=== PATIENT | female | born 1955 | race African-American/Black ===

== ENCOUNTER 2017-01-11 20:12 | Emergency (ER) | payer OTHER ==
[~2017-01-11] VITALS: Ht 160 cm; Wt 64.0 kg
[~2017-01-11 20:12] MED LIST: ASPI81EC97 PO; ASPI81EC98 PO; LORA10TA19 PO; ORE25 PO; PANT40EC PO; RANI75TA PO; SIMV20TA1 PO; SYN.075 PO
[2017-01-11 20:15] VITALS: BP 143/77
--- NOTE | 2017-01-11 20:37 | NUR ---
PT KRIST[facility]. TAKEN TO BED 7
--- NOTE | 2017-01-11 20:38 | NUR ---
61Y F BIBA FOR ANXIETY WHILE AT HOME S/P ARGUEMENT WITH DAUGHTER AND . PT STATES THIS HAS HAPPENED BEFORE . PT DENIES N/V/D; SKIN IS PINK/WARM/DRY; AAOX4 WITH EVEN AND STEADY GAIT; LUNGS CLEAR BL; HR EVEN AND REGULAR; PT DENIES ANY FEVER, CP, SOB, OR COUGH AT THIS TIME; PATIENT STATES PAIN OF 0/10 AT THIS TIME; VSS; PATIENT POSITIONED FOR COMFORT; HOB ELEVATED; BEDRAILS UP X2; BED DOWN. ER MD MADE AWARE OF PT STATUS. HX: HTN, HYPERLIPEMIA, KNEE SX RIGHT 06/08/16
--- NOTE | 2017-01-11 20:52 | NUR ---
Dr. Rosa evaluating patient at bedside.
[2017-01-11] MEDS ORDERED: NITROGLYCERIN 2% 1 GM PKT TP ONE (21:00)
[2017-01-11] MEDS ORDERED: MORPHINE SULFATE 4 MG/ML SYR IVP ONE (21:00)
--- NOTE | 2017-01-11 21:10 | NUR ---
X-Ray at bedside.
[2017-01-11 21:26] LABS: BASOPHILS # (AUTO) 0.2 K/uL (0.00-0.22); EOSINOPHILS # (AUTO) 0.1 K/uL (0-0.4); EOSINOPHILS % (AUTO) 2.2 % (0.0-4.0); HEMATOCRIT 38.5 % (36-48); HEMOGLOBIN 12.7 g/dL (12.0-16.0); LYMPHOCYTES # (AUTO) 1.9 K/uL (2.5-16.5); LYMPHOCYTES % (AUTO) 37.8 % (20.5-51.1); MEAN CORPUSCULAR HEMOGLOBIN 30 pg (27-31); MEAN CORPUSCULAR HGB CONC 33 g/dL (33-37); MEAN CORPUSCULAR VOLUME 90 fL (80-94); MONOCYTES # (AUTO) 0.3 K/uL (0.8-1.0); MONOCYTES % (AUTO) 5.1 % (1.7-9.3); NEUTROPHILS # (AUTO) 2.6 K/uL (1.8-7.7); NEUTROPHILS % (AUTO) 50.9 % (42.2-75.2); PLATELET COUNT (AUTO) 304 K/uL (140-450); RED BLOOD CELL COUNT(AUTO) 4.27 MIL/uL (4.20-5.40); RED CELL DISTRIBUTION WIDTH 13.4 % (11.6-13.7); WHITE BLOOD COUNT (AUTO) 5.1 K/uL (4.8-10.8)
[2017-01-11 21:40] LABS: ANION GAP 12.6 (8-16); CALCIUM 9.2 mg/dL (8.5-10.1); CARBON DIOXIDE 30.9 mmol/L (21-32); CREATININE 1.1 mg/dL (0.6-1.3); POTASSIUM 3.5 mmol/L (3.5-5.1)
[2017-01-11 21:45] LABS: TOTAL BILIRUBIN 0.3 mg/dL (0.0-1.0); TOTAL PROTEIN, SERUM 7.8 g/dL (6.4-8.2)
[2017-01-11 21:54] LABS: CREATINE KINASE MB 1.1 ng/mL (0-3.6); CREATINE KINASE, TOTAL 174 U/L (26-192); TROPONIN I < 0.017 ng/mL (0.00-0.06)
--- NOTE | 2017-01-12 00:03 | NUR ---
IV removed, catheter intact and site benign. Applied folded 4x4 gauze and tape to stop bleeding.
[2017-01-12 00:17] VITALS: BP 128/69
--- NOTE | 2017-01-12 00:17 | NUR ---
Patient discharged with v/s stable. Written and verbal after care instructions given and explained. Patient alert, oriented and verbalized understanding of instructions. Ambulatory with steady gait. All questions addressed prior to discharge. ID band removed. Patient advised to follow up with PMD. Rx of KLONOPIN 1MG AND OMEPRAZOLE 40MG given. Patient educated on indication of medication including possible reaction and side effects. Opportunity to ask questions provided and answered. DISCHARGED BY ER MD CASTANO
== END 2017-01-12 00:17 | disposition home or self-care (01) ==
LOC: MED 20:12
DX: F41.9 Anxiety disorder, unspecified (principal); K21.9 Gastro-esophageal reflux disease without esophagitis; I10 Essential (primary) hypertension; E03.9 Hypothyroidism, unspecified; E78.00 Pure hypercholesterolemia, unspecified; Z98.890 Other specified postprocedural states; Z79.82 Long term (current) use of aspirin; Z79.899 Other long term (current) drug therapy
CPT/HCPCS: 36415; 71010; 80053; 80061; 81002; 82550; 82553; 83880; 84484; 85025; 85379; 93005; 96374; 99285; J2270; Q0092

== ENCOUNTER 2020-04-04 01:50 | Inpatient (IN) | payer OTHER ==
[2020-04-04] VITALS (7 sets, daily range): BP systolic 121–174; BP diastolic 67–84
[~2020-04-04] VITALS: Ht 160 cm; Wt 67.6 kg
[~2020-04-04 01:50] MED LIST changes: -RANI75TA PO; +[UNRECOGNIZED DRUG - CODE] PO
--- NOTE | 2020-04-04 01:51 | NUR ---
BIBA TAKEN TO BED #4
--- NOTE | 2020-04-04 01:55 | NUR ---
PT 65 Y/O FEMALE BIBA FOR C/O CHEST PAIN STARTING 6 HOURS AGO. PT STATED," IT STARTED AFTER EATING A STIR LEUNG AT HOME." PT RECIVED 325MG ASA AND 1 TAB OF NITRO ODT PRIOR TO ARRIVAL BY EMS. PT STATES PAIN IS CURRENTLY 0/10. PT STATES PRIOR TO RECIVEING MEDICATION PAIN WAS 7/10 ON L SIDE OF CHEST AND RADIATED TO L SHOULDER. PT DESCRIBED PAIN BURINING. PT DENIES HX OF AR IN PAST. RESPIRATIONS ARE EVEN AND UNLABORED. DENIES SOB OR COUGH. AFEBRILE. DENIES N/V/D. PT SKIN IS DRY AND WARM. PT ON MECHANIC SENIOR. VSS. MEDHX: GERD, HYPERTHYROID, ARTHRITIS ALLERGIES: NKA
--- NOTE | 2020-04-04 02:00 | NUR ---
EKG BEING PERFORMED AT BEDSIDE.
--- NOTE | 2020-04-04 02:05 | NUR ---
XRAY AT BEDSIDE.
--- NOTE | 2020-04-04 02:13 | NUR ---
IV PLACED IN R AC 20G. BLOOD RETURN NOTED. NO C/O PAIN IN IV SITE.
[2020-04-04] MEDS ORDERED: LIDOCAINE VISCOUS 2% 20 ML UDC PO ONE (02:15)
[2020-04-04] MEDS ORDERED: ALUMINUM HYD/MAG/SIMETHICONE 30 ML UDC PO ONE (02:15)
--- NOTE | 2020-04-04 02:15 | NUR ---
LABS DRAWN AND GIVEN TO [employer].
--- NOTE | 2020-04-04 02:26 | NUR ---
PT GIVEN MAALOX/MYLANTA WITH LIDOACINE 2% GIVEN PO. PT TOLERATED MEDICATION WELL.
--- NOTE | 2020-04-04 02:50 | NUR ---
PT HAS C/O 05/07 L SIDED CHEST PAIN. " MY PAIN CAME BACK. IT FEELSL CHARLES A BURNING, SHARP PAIN." MADE AWARE. NEW ORDERS GIVEN.
[2020-04-04] MEDS ORDERED: MORPHINE SULFATE 4 MG/ML SYR IVP ONE (02:55)
[2020-04-04] MEDS ORDERED: ONDANSETRON 4 MG/2 ML VIAL IVP ONE (02:55)
[2020-04-04 03:00] LABS: ANION GAP 12.4 (8-16); CARBON DIOXIDE 30.8 mmol/L (21-32); POTASSIUM 3.2 mmol/L (3.5-5.1)
[2020-04-04 03:04] LABS: BASOPHILS # (AUTO) 0.1 K/uL (0.00-0.22); EOSINOPHILS # (AUTO) 0.2 K/uL (0-0.4); EOSINOPHILS % (AUTO) 2.3 % (0.0-4.0); HEMATOCRIT 37.6 % (36-48); HEMOGLOBIN 12.5 g/dL (12.0-16.0); LYMPHOCYTES % (AUTO) 44.7 % (20.5-51.1); MEAN CORPUSCULAR HEMOGLOBIN 31 pg (27-31); MEAN CORPUSCULAR HGB CONC 33 g/dL (33-37); MEAN CORPUSCULAR VOLUME 94.6 fL (80-94); MONOCYTES # (AUTO) 0.5 K/uL (0.8-1.0); MONOCYTES % (AUTO) 7.5 % (1.7-9.3); NEUTROPHILS % (AUTO) 44.5 % (42.2-75.2); PLATELET COUNT (AUTO) 279 K/uL (140-450); RED BLOOD CELL COUNT(AUTO) 3.97 MIL/uL (4.20-5.40); WHITE BLOOD COUNT (AUTO) 6.7 K/uL (4.8-10.8)
--- NOTE | 2020-04-04 03:05 | NUR ---
PT CONINTUES ON INFRASTRUCTURE ADMINISTRATOR. PT VSS. PT GIVEN MORPHINE 4MG IVP FOR 8/10 CHEST PAIN AND ZOFRAN 4MG IVP FOR NAUSEA. PT IV SITE IS PATENT. NO REDNESS, SWELLING, OR C/O PAIN AT SITE. BLANKET GIVEN TO PT FOR COMFORT MEASURES. HOB UP PER REQUESTED BY PT. BED LOCKED AND IN LOWEST POSTION.
[2020-04-04 03:09] LABS: TOTAL BILIRUBIN 0.3 mg/dL (0.0-1.0)
--- NOTE | 2020-04-04 03:32 | NUR ---
ERMD MADE AWARE OF POTASSIUM LEVEL 3.2. NO NEW ORDERS GIVEN AT THIS TIME.
[2020-04-04] MEDS ORDERED: TRAM50TA1 PO (03:49)
[2020-04-04] MEDS ORDERED: LOSA25TA43 PO (03:49)
[2020-04-04] MEDS ORDERED: DOCUSATE SODIUM 100 MG GELCAP PO PRN (03:50)
[2020-04-04] MEDS ORDERED: POTASSIUM CHLORIDE 10 MEQ TABER PO ONE (03:50)
[2020-04-04] MEDS ORDERED: ONDANSETRON 4 MG/2 ML VIAL IM/IVP PRN (03:50)
[2020-04-04] MEDS ORDERED: ACETAMINOPHEN 325 MG TAB PO PRN (03:50)
[2020-04-04] MEDS ORDERED: HYDROcodone/APAP 5/325 MG 1 TAB TAB PO PRN (03:50)
--- NOTE | 2020-04-04 03:50 | NUR ---
PT STATES PAIN HAS REDUCED TO 0/10 IN CHEST. PT CONTINUES ON DEPUTY CHIEF EXECUTIVE. VSS. RESPIRATIONS ARE EVEN AND UNLABORED. DENIES N/V/D.
--- NOTE | 2020-04-04 04:15 | NUR ---
RESJOAODENT AT BEDSIDE ASSESSING PT.
--- NOTE | 2020-04-04 04:19 | NUR ---
PT AMBULATED TO RESTROOM WITH STEADY GAIT.
[2020-04-04] MEDS ORDERED: traMADol 50 MG TAB PO PRN (04:25)
--- NOTE | 2020-04-04 04:25 | NUR ---
Patient will be admitted to care of . Admited to TELE. Will go to room 107A. Belongings list completed. Report to ERIK DELGADILLO, KAVITA DELGADILLO.
--- NOTE | 2020-04-04 04:30 | NUR ---
RECEIVED REPORT FROM ER NURSE IDRIS. PATIENT ARRIVED AT 0425 VIA GURNEY. ON TELE MONITOR. PATIENT ALERT AND ORIENTED X4. ORIENTED TO ROOM AND STAFF. PATIENT VERBALIZED UNDERSTANDING. NO CURRENT COMPLAINTS OF PAIN VOICED FROM PATIENT. WILL CONTINUE TO MONITOR. PATIENT BED IN LOW POSITION AND CALL LIGHT WITHIN REACH. PATIENT ON ROOM AIR WITH 98% O2 SAT. NO S/S OF RESP DISTRESS NOTED
[2020-04-04 04:32] LABS: FREE T4 (FREE THYROXINE) 1.08 ng/dL (0.76-1.46); MAGNESIUM 1.8 mg/dL (1.8-2.4); PHOSPHORUS 3.7 mg/dL (2.5-4.9); THYROID STIMULATING HORMONE 2.71 uIU/mL (0.34-3.74)
[2020-04-04] MEDS ORDERED: KETOROLAC 15 MG/ML VIAL IVP PRN (04:40)
[2020-04-04] MEDS ORDERED: hydrALAZINE 20 MG/ML VIAL IVP PRN (04:55)
[2020-04-04] MEDS ORDERED: CALCIUM CARBONATE 500 MG TAB.CHEW PO PRN (04:55)
--- NOTE | 2020-04-04 04:55 | NUR ---
DR PRITCHETT NOTIFIED OF PATIENTS BLOOD PRESSURE 170/[address] WILL PLACE ORDER TO COVER. PATIENT ALSO GIVEN KDUR 10 MEQ TAB X4 TAB BY MOUTH, FOR POTASSIUM LEVEL OF 3.2 PER MD ORDER PATIENT TOLERATED WELL AND EDUCATED ON MEDICATION. PATIENT VERBALIZED UNDERSTANDING. IV NS @ 60ML/HR HUNG, IV SITE PATENT AND INTACT.
[2020-04-04] MEDS: NACL 0.9% 1,000 ML IV SCH ×2 (04:56→18:31)
--- NOTE | 2020-04-04 05:20 | NUR ---
BLOOD PRESSURE REASSESSED AND IS NOW 143/79, WILL CONTINUE TO MONITOR PATIENT FOR CHANGES.
[2020-04-04 06:56] LABS: PROTHROMBIN TIME 10.7 secs (10.8-13.4)
--- NOTE | 2020-04-04 07:11 | NUR ---
REPORT GIVEN TO AM SHIFT NURSE FOR CONTINUITY OF CARE. PATIENT IN STABLE CONDITION AT THIS TIME.
--- NOTE | 2020-04-04 07:15 | NUR ---
RECEIVED PATIENT FROM NIGHT NURSE. PATIENT IS ALERT AND AWAKE. RESP EVEN AND UNLABORED ON ROOM AIR. PATIENT DENIES OF ANY DISTRESS OR PAIN AT THIS TIME. PLAN OF CARE DISCUSSED WITH PATIENT AND PATIENT VERBALIZED UNDERSTANDING. CALL LIGHT WITHIN REACH. BED IN LOW POSITION. WILL CONTINUE WITH CARE.
--- NOTE | 2020-04-04 07:53 | NUR ---
PATIENT HAS BEEN SCREENED AND CATEGORIZED MODERATE NUTRITION RISK. PATIENT WILL BE SEEN WITHIN 3-5 DAYS OF ADMISSION. 04/06/20-04/08/20 MILA RAMSEY MS, RDN
--- NOTE | 2020-04-04 08:32 | NUR ---
UA COLLECTED AND SENT TO LAB
[2020-04-04] MEDS: PANTOPRAZOLE 40 MG TABEC PO SCH (08:35)
[2020-04-04] MEDS: LORATADINE 10 MG TAB PO SCH (08:36)
[2020-04-04] MEDS: ECOTRIN 81 MG TABEC PO SCH (08:36)
[2020-04-04] MEDS: LEVOTHYROXINE 0.075 MG TAB PO SCH (08:36)
[2020-04-04] MEDS: LOSARTAN 25 MG TAB PO SCH (08:38)
[2020-04-04] MEDS: ENOXAPARIN 40 MG/0.4 ML SYR SUBQ SCH (08:46)
--- NOTE | 2020-04-04 08:48 | NUR ---
MORNING ROUTINE MEDICATIONS GIVEN. PATIENT TOLERATED WELL. BP 150/68 HR 68. PATIENT DENIES OF CHEST PAIN OR DISCOMFORTS AT THIS TIME. CALL LIGHT WITHIN REACH. WILL CONTINUE TO MONITOR.
[2020-04-04 09:03] LABS: BILIRUBIN,URINE NEGATIVE (NEGATIVE); BLOOD, URINE NEGATIVE (NEGATIVE); COLOR,URINE YELLOW (YELLOW); LEUKOCYTE ESTERASE ,URINE 2+ (NEGATIVE); NITRITE, URINE NEGATIVE (NEGATIVE); PH,URINE 7.5 (5.0-9.0); UGLUCOSE NEGATIVE (NEGATIVE)
[2020-04-04 09:16] LABS: APPEARANCE,URINE HAZY (CLEAR)
[2020-04-04 09:18] LABS: RBC,URINE 0-5 /HPF (0-5)
--- NOTE | 2020-04-04 11:52 | NUR ---
PATIENT SITTING COMFORTABLY IN BED. VITALS 142/67 HR 57. NO NOTED DISTRESS AT THIS TIME. DENIES OF ANY CHEST PAIN. CALL LIGHT WITHIN REACH. WILL CONTINUE TO MONITOR.
[2020-04-04] MEDS ORDERED: POTASSIUM CHLORIDE 10 MEQ TABER PO SCH (12:00)
--- NOTE | 2020-04-04 15:19 | NUR ---
PATIENT RESTING COMFORTABLY IN BED. NO NOTED DISTRESS AT THIS TIME. BED IN LOW POSITION. CALL LIGHT WITHIN PLACE. WILL CONTINUE TO MONITOR.
--- NOTE | 2020-04-04 17:20 | NUR ---
DR BERGMAN CAME TO DISCUSS STATUS WITH PATIENT AND PLAN OF CARE. POSSIBLE DISCHARGE TODAY. TRANSFER PATIENT CARE TO ELIE MEYERS. PATIENT IN STABLE CONDITION.
--- NOTE | 2020-04-04 17:21 | NUR ---
RECEIVED BEDSIDE REPORT FROM NEGRITO DELGADILLO FOR CONTINUITY OF CARE. PT IS RESTING ON BED AT THIS TIME. NO SIGNS OF ACUTE DISTRESS NOTED. TELE MONITOR ATTACHED. SAFETY MEASURES IN PLACE.
--- NOTE | 2020-04-04 18:00 | NUR ---
PT IS ASKING WHEN SHE WILL BE DC AND HER WILL BE PICK HER UP. EXPLAINED TO PT THAT I WILL FOLLOW UP WITH MD. PT SAID OK. PT IS EATING DINNER AT THIS TIME. NO SIGNS OF DISTRESS NOTED. TELE MONITOR ATTACHED. SAFETY MEASURES IN PLACE.
--- NOTE | 2020-04-04 18:34 | NUR ---
STARTED A NEW BAG OF IVF NS AND INFUSING PER MD ORDER 60 ML/HR. EXPLAINED TO PT THAT SHE IS NOT GOING TO BE DC THIS EVENING, PER MD, SHE WILL BE DC TOMORROW. PT WAS AWARE. PT IS USING HER PHONE AT THIS TIME. NO SIGNS OF DISTRESS NOTED. TELE MONITOR ATTACHED. SAFETY MEASURES IN PLACE.
--- NOTE | 2020-04-04 19:05 | NUR ---
RECEIVED REPORT FROM AM SHIFT NURSE FOR CONTINUITY OF CARE. PATIENT AO X4. LAYING IN BED WITH IV 20GAUGE INTACT WITH IV FLUIDS RUNNING. TELE MONITOR IN PLACE. NO CURRENT COMPLAINTS VOICED FROM PATIENT, BED IN LOW POSITION AND CALL LIGHT WITHIN REACH. WILL CONTINUE TO MONITOR.
--- NOTE | 2020-04-04 19:05 | NUR ---
ENDORSED PT AT BEDSIDE TO CISTERN ROOM OPERATOR NURSE FOR CONTINUITY OF CARE. PT IS AWAKE AND RESTING ON BED. TELE MONITOR ATTACHED. PT IS IN STABLE CONDITION.
--- NOTE | 2020-04-04 20:44 | NUR ---
SCHEDULED MEDICATION GIVEN TO PATIENT. TOLERATED WELL. MEDICATION EDUCATION GIVEN AND PATIENT VERBALIZED UNDERSTANDING. PATIENT IS AWAKE IN BED WATCHING TV, NO COMPLAINTS VOICED. WILL CONTINUE TO MONITOR
[2020-04-04] MEDS ORDERED: SIMVASTATIN 20 MG TAB PO SCH (21:00)
--- NOTE | 2020-04-04 22:22 | NUR ---
PATIENT AWAKE, AND LAYING IN BED. DENIES ANY PAIN. WILL CONTINUE TO MONITOR
[2020-04-05] VITALS: BP 148/90
--- NOTE | 2020-04-05 00:41 | NUR ---
PATIENT IS SLEEPING, RESPIRATION EVEN AND UNLABORED, NO S/S OF DISTRESS NOTED. WILL CONTINUE TO MONITOR
--- NOTE | 2020-04-05 02:35 | NUR ---
ROUNDS DONE, PATIENT SLEEPING RESP EVEN AND UNLABORED. CONTINUES ON ROOM AIR. NO S/S OF DISTRESS
[2020-04-05 04:30] VITALS: BP 139/72
--- NOTE | 2020-04-05 04:51 | NUR ---
PATIENT RESTING, NO CURRENT COMPLAINTS. BED IN LOW POSITION AND CALL LIGHT WITHIN REACH. WILL CONTINUE TO MONITOR
[2020-04-05 06:12] LABS: BASOPHILS # (AUTO) 0.1 K/uL (0.00-0.22); EOSINOPHILS # (AUTO) 0.2 K/uL (0-0.4); EOSINOPHILS % (AUTO) 4.6 % (0.0-4.0); HEMATOCRIT 36.9 % (36-48); HEMOGLOBIN 12.1 g/dL (12.0-16.0); LYMPHOCYTES # (AUTO) 2.6 K/uL (2.5-16.5); LYMPHOCYTES % (AUTO) 51.6 % (20.5-51.1); MEAN CORPUSCULAR HEMOGLOBIN 31 pg (27-31); MEAN CORPUSCULAR HGB CONC 33 g/dL (33-37); MEAN CORPUSCULAR VOLUME 95.1 fL (80-94); MONOCYTES # (AUTO) 0.4 K/uL (0.8-1.0); MONOCYTES % (AUTO) 8.7 % (1.7-9.3); NEUTROPHILS # (AUTO) 1.7 K/uL (1.8-7.7); NEUTROPHILS % (AUTO) 34.1 % (42.2-75.2); PLATELET COUNT (AUTO) 263 K/uL (140-450); RED BLOOD CELL COUNT(AUTO) 3.88 MIL/uL (4.20-5.40); WHITE BLOOD COUNT (AUTO) 5.1 K/uL (4.8-10.8)
--- NOTE | 2020-04-05 06:21 | NUR ---
MADE ROUNDS. PT ASLEEP. NO S/S OF ANY DISCOMFORT NOTED.
[2020-04-05 06:39] LABS: PHOSPHORUS 3.6 mg/dL (2.5-4.9)
[2020-04-05 06:48] LABS: ANION GAP 9.3 (8-16); CARBON DIOXIDE 30.7 mmol/L (21-32)
--- NOTE | 2020-04-05 07:14 | NUR ---
REPORT GIVEN TO AM SHIFT NURSE FOR CONTINUITY OF CARE. PATIENT IN STABLE CONDITION AT THIS TIME
--- NOTE | 2020-04-05 07:28 | NUR ---
RECEIVED REPORT FROM APPLIANCE ASSEMBLER NURSE. PT IN BED. ALERT AND ORIENTED X4, NO C/O PAIN, NO SOB, RESPIRATIONS ARE EVEN AND UNLABORED, AMBULATORY. ON ROOM AIR. WITH IV ON RAC 20G. SKIN INTACT. SAFETY MEASURES IN PLACE. CALL LIGHT WITHIN REACH. WILL CONTINUE TO MONITOR.
[2020-04-05 08:00] VITALS: BP 148/85
--- NOTE | 2020-04-05 08:15 | NUR ---
PT IN BED EATING BREAKFAST. DUE MORNING MEDS GIVEN.
[2020-04-05] MEDS ORDERED: FAMO-90 PO (08:44)
[2020-04-05] MEDS ORDERED: CEPH250C16 PO (08:54)
[2020-04-05] MEDS: LORATADINE 10 MG TAB PO SCH (08:57)
[2020-04-05] MEDS: LOSARTAN 25 MG TAB PO SCH (08:57)
[2020-04-05] MEDS: ECOTRIN 81 MG TABEC PO SCH (08:57)
[2020-04-05] MEDS: PANTOPRAZOLE 40 MG TABEC PO SCH (08:58)
[2020-04-05] MEDS: LEVOTHYROXINE 0.075 MG TAB PO SCH (08:58)
[2020-04-05] MEDS: ENOXAPARIN 40 MG/0.4 ML SYR SUBQ SCH (09:28)
--- NOTE | 2020-04-05 09:50 | NUR ---
PT RESTING IN BED. NO C/O PAIN NO SOB. IN STABLE CONDITION
--- NOTE | 2020-04-05 09:53 | NUR ---
FOLLOWED UP WITH DR. BAKER REGARDING THE CONSULT. PER DR. BAKER, HE IS COMING TO SEE PT TODAY.
--- NOTE | 2020-04-05 10:50 | NUR ---
DISCHARGE INSTRUCTIONS AND PRESCRIPTION GIVEN. PT VERBALIZED UNDERSTANDING. IV REMOVED WITH LUMEN INTACT. ID BAND REMOVED. TELE MONITOR REMOVED. PT'S WILL PICK HER UP VIA PRIVATE VEHICLE
--- NOTE | 2020-04-05 11:25 | NUR ---
ESCORTED PT TO FRONT LOBBY. PICKED UP BY VIA PRIVATE VEHICLE. PT STABLE UPON DISCHARGE
--- NOTE | 2020-04-05 11:29 | NUR ---
DISCHARGE PLANNING: THIS IS A 65 Y/O MALE PATIENT FROM HOME, WHO CAME IN DUE TO CHEST PAIN. PAST MEDICAL HISTORY INCLUDE GERD, HYPOTHYROIDISM, OSTEOARTHRITIS, HTN, DYSLIPIDEMIA. INITIAL DIAGNOSIS OF CHEST PAIN. CURRENT LABS INCLUDE WBC 5.1, H/H 12.1/36.9, NA/K 143/4.0, BUN/CREA 7/1.0 AND TROP NEGATIVE. URINE CS AND MRSA NARES PENDING. CXR ON ADMISSION SHOWED MILD CARDIOMEGALY WITH PULMONARY VASCULAR CONGESTION. CARDIO CONSULT IN PLACE AND SEEN. ECHO DONE. FOR DC BACK TO HOME TODAY.
== END 2020-04-05 11:25 | disposition home or self-care (01) | DRG 392 ==
LOC: MED 01:50 → MTU 03:46
PROVIDERS: ADMIT General Practice; ATTEND General Practice
DX: K21.9 Gastro-esophageal reflux disease without esophagitis (principal); N39.0 Urinary tract infection, site not specified; E87.6 Hypokalemia; E03.9 Hypothyroidism, unspecified; I10 Essential (primary) hypertension; E78.5 Hyperlipidemia, unspecified; M19.90 Unspecified osteoarthritis, unspecified site; Z82.5 Family history of asthma and other chronic lower respiratory diseases; Z84.89 Family history of other specified conditions
CPT/HCPCS: 36415; 71045; 80048; 80053; 81001; 82150; 83036; 83605; 83690; 83735; 83880; 84100; 84439; 84443; 84484; 85025; 85610; 85730; 87081; 87086; 93005; 96361; 96374; 96375; 96376; 99285; J1650; J2270; J2405; J7030; Q0092